=== PATIENT | male | born 1940 | race Caucasian/White ===

== ENCOUNTER 2018-01-28 15:45 | Inpatient (IN) | payer MEDICARE ==
[2018-01-28] MEDS ORDERED: Iopamidol 370 76% 100 ML VIAL ONE (16:34)
--- NOTE | 2018-01-28 16:59 | CT ---
CT ARTERIOGRAM CHEST WITH IV CONTRAST AND 3D MIP IMAGING CT ARTERIOGRAM ABDOMEN AND PELVIS WITH IV CONTRAST AND 3D MIP IMAGING 01/28/18 HISTORY: Chest and abdomen pain. Bradycardia. Syncope. FINDINGS: There is good contrast opacification of the aorta without evidence of dissection or aneurysm. Promine nt arterial calcification including the coronary arteries. Postoperative changes of mediastinum. No f illing defects are apparent within the central pulmonary arteries, although opacification is not opti mal given the technique was for the aorta. Old right clavicular fracture is apparent. A 0.7 cm noncalcified nodule is present at the left instructor kindergarten olateral lung, favored to be within the superior segment left lower lobe. Smaller subpleural nodules are present within each lung. Precarinal lymph node measures up to 1.8 cm. Hyperdense stone is evident within the dependent portion of the gallbladder lumen. Prominent degenerative changes lumbar spine. IMPRESSION: Prominent atherosclerosis. No CT evidence of aortic dissection or aneurysm. Noncalcified 7 mm nodule left lower lobe. Please consider followup CT in 6 months to evaluate for sta bility. Pulmonary fibrosis. Cholelithiasis. POS: [facility]
[2018-01-28 18:06] LABS: Troponin I Less than 0.010 ng/mL (< 0.028)
[2018-01-28 18:33] VITALS: BMI 26.3
[2018-01-28 19:35] LABS: Troponin I Less than 0.010 ng/mL (< 0.028)
[2018-01-28] MEDS ORDERED: Acetaminophen 325 MG TAB PO PRN (21:16)
[2018-01-28] MEDS ORDERED: Bisacodyl 5 MG TAB PO PRN (21:16)
[2018-01-28] MEDS ORDERED: Sodium Chloride 0.9% 1,000 ML IV SCH (21:30)
--- NOTE | 2018-01-28 22:18 | CON ---
DATE OF CONSULT: 01/28/18 HISTORY OF PRESENT: Patient is a pleasant 77-year-old gentleman with a history of coronary artery disease status post coronary bypass surgery who presented with severe back discomfort and weakness. The patient has a long history of coronary artery disease. In 2001, he underwent coronary bypass graft surgery. The patient also has a history of bradycardia. He reports previously having episodes where he had felt weak. The patient has never lost consciousness. Today, the patient presented with back discomfort. He also reported feeling weak. He reports that at times when he stands up he feels lightheaded. The patient was noted to have a slow heart rate and admitted for further evaluation. Patient denies having any chest discomfort or dyspnea. PAST MEDICAL HISTOR 1. Coronary artery disease. 2. Hypertension. 3. Hypercholesterolemia. 4. Dyslipidemia. PAST SURGICAL HISTORY: Collarbone surgery, hand surgery, and coronary bypass graft surgery. SOCIAL: Smokes half pack per day. ALLERGIES: No known drug allergies: MEDICATIONS: Terazosin 20 daily, Synthroid 75 daily, lisinopril 20 daily, niacin 1000 daily, Zocor 40 daily, aspirin 162 and citalopram 20 mg daily. ALLERGIES: No known drugs. REVIEW OF SYSTEMS: Ten-point system otherwise unremarkable. No history of easy bruising or bleeding, bright red blood per rectum, hematuria. Ten-point system unremarkable. PHYSICAL EXAMINATION: GENERAL: This is a well-developed gentleman in no acute distress. VITAL SIGNS: Blood pressure is 145/65, heart rate was 45. NECK: No jugular venous distention. LUNGS: Clear to auscultation. HEART: Regular rate and rhythm, normal S1, S2, no murmurs. ABDOMEN: Nondistended. EXTREMITIES: No edema. LABORATORY RESULTS: His sodium was 133, potassium 3.6, chloride 44.7, chloride 102, bicarbonate was 22, BUN 14, creatinine 1.05. BNP 141, LDL 62, HDL is 63, AST 19. His white blood cell count was 10.4, hemoglobin 11.2. Hematocrit 33.7 , platelets are 239. His INR was 1.1. His CT scan revealed no evidence of a dissection. His EKG revealed marked sinus bradycardia with first degree AV block. IMPRESSION: 1. Marked bradycardia. 2. History of coronary bypass surgery. 3. Hypertension. 4. Dyslipidemia. 5. Tobacco abuse. 6. Back discomfort. This gentleman presented with weakness and back discomfort. The patient has marked bradycardia. From a cardiac standpoint, his heart rate is extremely low and appears to be symptomatic. We will probably recommend the patient have placement of electronic pacemaker during this hospitalization. We will follow this patient with you through his hospitalization. DARSHANA
[2018-01-28 23:39] LABS: Troponin I Less than 0.010 ng/mL (< 0.028)
[2018-01-29 05:04] LABS: Anion Gap 10 mmol/L (10-20); BUN (Urea Nitrogen) 15 mg/dL (8.4-25.7); Calc. Creatinine Clearance 85 mL/min (70-130); Calcium 9.2 mg/dL (7.8-10.44); Carbon Dioxide 26 mmol/L (23-31); Cardiac Risk 2.1 (Less than 4.5); Chloride 103 mmol/L (98-107); Cholesterol 116 mg/dl (< 200 Desired); Estimated GFR-MDRD Greater than 90; Glucose 96 mg/dL (83-110); HDL Cholesterol 56 mg/dL (>60 Neg Risk); LDL Cholesterol, Calculated 52 mg/dL; Potassium 4.5 mmol/L (3.5-5.1); Sodium 134 mmol/L (136-145); Triglycerides 41 mg/dL (Less than 150)
[2018-01-29] MEDS: Levothyroxine Sodium 75 MCG TAB PO SCH (05:10)
[2018-01-29 05:26] LABS: Band 2 % (5-11); Eosinophils 2 % (0-10); Hemoglobin 10.8 g/dL (14.0-18.0); Lymphocytes 30 % (21-51); MDiff Complete? YES; Mean Corpuscular HGB CONC 33.2 g/dL (32.0-36.0); Mean Corpuscular Hemoglobin 29.3 pg (27.0-31.0); Mean Corpuscular Volume 88.1 fl (80.0-94.0); Mean Platelet Volume 7.8 fL (7.4-10.4); Monocytes 8 % (0-10); Neutrophil 57 % (42-75); Platelet Count 258 thou/uL (130-400); RBC Distribution Width 11.3 % (11.5-14.5); White Blood Cell (WBC) Count 9.7 thou/uL (4.8-10.8)
--- NOTE | 2018-01-29 05:36 | HP ---
CHIEF COMPLAINT: Lower back pain/generalized weakness. HISTORY OF PRESENT ILLNESS: Patient is a very pleasant 77-year-old male with a history of hypertensi on, smoking, coronary artery disease status post bypass, who presents to the hospital for lower back pain and fatigue. The patient stated that he was working today normally. He does complain of some l ower back pain; however, today his pain was pretty significant and he did not feel well. The patient stated that he did also have some dizziness; however, denies any chest discomfort or any nausea or v omiting. The patient stated he just felt very tired and fatigue. At this time, he was brought into the hospital and was found to have a heart rate in the 40s. The patient was admitted to the hospital for further evaluation. Patient currently denies any chest pain, dizziness, lightheadedness, nausea , vomiting, or diarrhea. PAST MEDICAL HISTORY: Hypertension, coronary artery disease, hypothyroidism. SOCIAL HISTORY: He smokes 20 packs a year. Drinks about 2 beers a week. PAST SURGICAL HIOSTORY: He had a bypass about 15-16 years ago. FAMILY HISTORY: Mother of heart disease. REVIEW OF SYSTEMS: All negative except for the ones mentioned above in the HPI. MEDICATIONS: As following; patient takes lisinopril 40 mg daily, niacin 500 mg daily, terazosin 2 mg daily, aspirin 81 mg daily, citalopram daily, levothyroxine 75 mcg daily and simvastatin 80 mg daily . ALLERGIES: He has got no known allergies. PHYSICAL EXAMINATION: VITAL SIGNS: Temperature of 98.2, heart rate of 45, 16, 96% on room air, 145/65. GENERAL: He is awake, alert, oriented x3, does not appear in distress. HEENT: Normocephalic, atraumatic. NECK: No lymphadenopathy noted. CARDIOVASCULAR: S1, S2 present. The patient's heart rate appears to be bradycardic. No murmurs or rubs heard. LUNGS: Clear to auscultation. No rhonchi or wheeze noted. ABDOMEN: Soft, nontender. Bowel sounds are positive x2. No hepatomegaly, splenomegaly noted. EXTREMITIES: No edema. Pedal pulse present x2. SKIN: The patient does have a little bit of campos on his upper chest area; however, no cuts or bruises noted. NEUROLOGIC: He is able to move all 4 extremities. LABORATORY AND X-RAY FINDINGS: Labs are as the following: WBC of 10.4, hemoglobin of 11.2, hematocr it of 33.7, platelets of 239,000. Chemistry: Sodium of 133, potassium of 4.7, anion gap 14, BUN of 14, creatinine of 1.05. Troponins x3 are negative. ProBNP is 142. TSH is 0.29. We will check a fr ee T4. EKG appears sinus darya. The patient also had a CT for dissection, did not indicate any diss ection; however, he does have a calcified 7 mm nodule to the left lower lung area. ASSESSMENT AND PLAN: The patient is a very pleasant 77-year-old male who presents to the hospital wi th lower back pain and fatigue. 1. Symptomatic bradycardia. The patient was given some IV fluids because his blood pressure in the ER was pretty low; however, currently he is stable. Currently, patient is asymptomatic. We will con sult Cardiology. Continue to monitor on tele. Patient is not on any beta blockers. We will check a free T4 since his TSH was low. 2. Smoking history. Patient has been notified again smoking. He refuses a nicotine patch. 3. Left lower lung 7 mm nodule. Given the patient's history of smoking, he needs a followup CT in a bout 6 months. 4. Hypertension, currently stable. We will continue his home medication. 5. Deep venous thrombosis prophylaxis. We will put patient on subcutaneous heparin.
[2018-01-29] MEDS: Enoxaparin Sodium 40 MG/0.4 ML SYRINGE SC SCH (09:01)
[2018-01-29] MEDS: Lisinopril 20 MG TAB PO SCH (09:01)
[2018-01-29] MEDS: Aspirin 81 mg Enteric Coated Tablet PO SCH (09:02)
[2018-01-29] MEDS: Citalopram 20 MG TAB PO SCH (09:02)
--- NOTE | 2018-01-29 12:48 | PDOC.PN ---
- Subjective Encounter Start Date: 01/29/18 Encounter Start Time: 07:40 Pt seen for followup re: arrhythmia. Denies chest pain, shortness of breath, fevers or chills. - Objective Resuscitation Status: Resuscitation Status FULL:Full Resuscitation MAR Reviewed: Yes Vital Signs & Weight: Vital Signs (12 hours) Temp Pulse Resp BP BP BP Pulse Ox 01/29/18 12:00 98.5 F 57 L 16 117/61 94 L 01/29/18 09:01 128/63 01/29/18 07:53 98.5 F 53 L 16 128/63 95 01/29/18 04:00 98.1 F 56 L 18 123/59 L 95 Weight Weight 169 lb 8 oz I&O: 01/28/18 01/29/18 01/30/18 06:59 06:59 06:59 Intake Total 240 Output Total 350 Balance -350 240 Result Diagrams: 01/29/18 03:55 01/29/18 03:55 EKG Reviewed by me: Yes (Tele: DIXIE Gallardo) Phys Exam - Physical Examination Constitutional: NAD HEENT: moist MMs, sclera anicteric, oral pharynx no lesions, 2+ tonsils Neck: no nodes, no JVD, supple, full ROM Respiratory: no wheezing, no rales, no rhonchi, clear to auscultation bilateral Cardiovascular: no rub S1, S2, darya, reg Gastrointestinal: soft, non-tender, no distention, positive bowel sounds Neurological: moves all 4 limbs Psychiatric: normal affect, A&O x 3 Dx/Plan (1) Arrhythmia Code(s): I49.9 - CARDIAC ARRHYTHMIA, UNSPECIFIED Status: Acute Comment: Pt to have PPM today (2) Pulmonary nodule Code(s): R91.1 - SOLITARY PULMONARY NODULE Status: Acute Comment: pt needs repeat CT chest in 6 months (through PCP office) (3) HTN (hypertension) Code(s): I10 - ESSENTIAL (PRIMARY) HYPERTENSION Status: Chronic Comment: Controlled and at goal. (4) Hypothyroidism Code(s): E03.9 - HYPOTHYROIDISM, UNSPECIFIED Status: Chronic Comment: Stable. (5) CAD (coronary artery disease) Code(s): I25.10 - ATHSCL HEART DISEASE OF [place] CORONARY ARTERY W/O ANG PCTRS Status: Chronic Comment: stable (6) Tobacco abuse Code(s): Z72.0 - TOBACCO USE Status: Chronic - Plan * . Review of Systems - Review of Systems Constitutional: negative: fever, chills, sweats, weakness, malaise Respiratory: negative: Cough, Shortness of Breath, SOB with Excertion, Pleuritic Pain, Wheezing Cardiovascular: negative: chest pain, palpitations, orthopnea, paroxysmal nocturnal dyspnea, edema, light headedness Gastrointestinal: negative: Nausea, Vomiting, Abdominal Pain, Diarrhea, Constipation, Melena, Hematochezia Genitourinary: negative: Dysuria, Frequency, Incontinence, Hematuria, Retention Neurological: negative: Weakness, Numbness, Incoordination, Change in Speech, Confusion, Seizures - Medications/Allergies Allergies/Adverse Reactions: Allergies Allergy/AdvReac Type Severity Reaction Status Date / Time No Known Allergies Allergy Verified 01/28/18 20:12 Medications: Current Medications Acetaminophen (Tylenol) 650 mg PO Q4H PRN PRN Reason: Headache/Fever or Pain Aspirin (Ecotrin) 162 mg PO DAILY [facility] Last Admin: 01/29/18 09:02 Dose: 162 mg Atorvastatin Calcium (Lipitor) 20 mg PO HS [facility] Bisacodyl (Dulcolax) 10 mg PO DAILYPRN PRN PRN Reason: Constipation Citalopram Hydrobromide (Celexa) 20 mg PO DAILY [facility] Last Admin: 01/29/18 09:02 Dose: 20 mg Enoxaparin Sodium (Lovenox) 40 mg SC 0900 [facility] Last Admin: 01/29/18 09:01 Dose: 40 mg Levothyroxine Sodium (Synthroid) 75 mcg PO 0600 [facility] Last Admin: 01/29/18 05:10 Dose: 75 mcg Lisinopril (Zestril) 20 mg PO DAILY [facility] Last Admin: 01/29/18 09:01 Dose: 20 mg
[2018-01-29] MEDS: Terazosin HCl 5 MG CAP PO SCH (19:31)
[2018-01-29] MEDS: Atorvastatin Calcium 20 MG TAB PO SCH (19:31)
[2018-01-29] MEDS ORDERED: [UNRECOGNIZED DRUG - OTHER] PO SCH (21:00)
[2018-01-29] MEDS ORDERED: TERAZOSIN HCL PO SCH (21:00)
[2018-01-29] MEDS ORDERED: Atorvastatin Calcium 20 MG TAB PO SCH (21:00)
[2018-01-29] MEDS ORDERED: NIACIN 1000 MG PO SCH (21:00)
[2018-01-30] MEDS: Levothyroxine Sodium 75 MCG TAB PO SCH (05:23)
[2018-01-30] MEDS ORDERED: Non-Formulary Item 1 EACH (Lisinopril [Lisinopril] 20 MG) PO SCH (09:00)
[2018-01-30] MEDS: Aspirin 81 mg Enteric Coated Tablet PO SCH (09:07)
[2018-01-30] MEDS: Lisinopril 20 MG TAB PO SCH ×3 (09:07→09:11)
[2018-01-30] MEDS: Citalopram 20 MG TAB PO SCH (09:07)
[2018-01-30] MEDS: Enoxaparin Sodium 40 MG/0.4 ML SYRINGE SC SCH (09:08)
--- NOTE | 2018-01-30 12:35 | PDOC.PN ---
- Subjective Encounter Start Date: 01/30/18 Encounter Start Time: 08:20 Pt seen for followup re: arrhythmia. Denies chest pain, shortness of breath, fevers or chills. - Objective Resuscitation Status: Resuscitation Status FULL:Full Resuscitation MAR Reviewed: Yes Vital Signs & Weight: Vital Signs (12 hours) Temp Pulse Resp BP BP Pulse Ox 01/30/18 09:05 97.6 F 56 L 18 136/63 01/30/18 09:00 97.6 F 56 L 18 01/30/18 03:55 98.2 F 49 L 18 114/55 L 92 L Weight Weight 165 lb 3.2 oz I&O: 01/29/18 01/30/18 01/31/18 06:59 06:59 06:59 Intake Total 1450 Output Total 350 800 Balance -350 650 Result Diagrams: 01/29/18 03:55 01/29/18 03:55 EKG Reviewed by me: Yes (Tele: NSR, AV block) Phys Exam - Physical Examination Constitutional: NAD HEENT: moist MMs, sclera anicteric, oral pharynx no lesions, 2+ tonsils Neck: no nodes, no JVD, supple, full ROM Respiratory: no wheezing, no rales, no rhonchi, clear to auscultation bilateral Cardiovascular: no rub S1, S2, darya, reg Gastrointestinal: soft, non-tender, no distention, positive bowel sounds Neurological: moves all 4 limbs Psychiatric: normal affect, A&O x 3 Dx/Plan (1) Arrhythmia Code(s): I49.9 - CARDIAC ARRHYTHMIA, UNSPECIFIED Status: Acute Comment: Episodes of AV block, pt to go for PPM tomorrow. (2) Pulmonary nodule Code(s): R91.1 - SOLITARY PULMONARY NODULE Status: Acute Comment: pt to have CT chest in 6 months (through PCP office) (3) HTN (hypertension) Code(s): I10 - ESSENTIAL (PRIMARY) HYPERTENSION Status: Chronic Comment: Controlled and at goal. (4) Hypothyroidism Code(s): E03.9 - HYPOTHYROIDISM, UNSPECIFIED Status: Chronic Comment: Stable. (5) CAD (coronary artery disease) Code(s): I25.10 - ATHSCL HEART DISEASE OF [place] CORONARY ARTERY W/O ANG PCTRS Status: Chronic Comment: stable (6) Tobacco abuse Code(s): Z72.0 - TOBACCO USE Status: Chronic - Plan * . Review of Systems - Review of Systems Constitutional: negative: fever, chills, sweats, weakness, malaise Respiratory: negative: Cough, Shortness of Breath, SOB with Excertion, Pleuritic Pain, Wheezing Cardiovascular: negative: chest pain, palpitations, orthopnea, paroxysmal nocturnal dyspnea, edema, light headedness Gastrointestinal: negative: Nausea, Vomiting, Abdominal Pain, Diarrhea, Constipation, Melena, Hematochezia Genitourinary: negative: Dysuria, Frequency, Incontinence, Hematuria, Retention Skin: negative: Rash, Lesions, Abdoul, Bruising - Medications/Allergies Allergies/Adverse Reactions: Allergies Allergy/AdvReac Type Severity Reaction Status Date / Time No Known Allergies Allergy Verified 01/28/18 20:12 Medications: Current Medications Acetaminophen (Tylenol) 650 mg PO Q4H PRN PRN Reason: Headache/Fever or Pain Aspirin (Ecotrin) 162 mg PO DAILY [facility] Last Admin: 01/30/18 09:07 Dose: 162 mg Atorvastatin Calcium (Lipitor) 20 mg PO [facility] Last Admin: 01/29/18 19:31 Dose: 20 mg Bisacodyl (Dulcolax) 10 mg PO DAILYPRN PRN PRN Reason: Constipation Citalopram Hydrobromide (Celexa) 20 mg PO DAILY [facility] Last Admin: 01/30/18 09:07 Dose: 20 mg Enoxaparin Sodium (Lovenox) 40 mg SC 0900 [facility] Last Admin: 01/30/18 09:08 Dose: 40 mg Levothyroxine Sodium (Synthroid) 75 mcg PO 0600 [facility] Last Admin: 01/30/18 05:23 Dose: 75 mcg Lisinopril (Zestril) 20 mg PO DAILY [facility] Last Admin: 01/30/18 09:11 Dose: Not Given Niacin (Niaspan Er) 1,000 mg PO [facility] Last Admin: 01/29/18 19:30 Dose: 1,000 mg Terazosin HCl (Hytrin) 20 mg PO [facility] Last Admin: 01/29/18 19:31 Dose: 20 mg
[2018-01-30] MEDS: Terazosin HCl 5 MG CAP PO SCH (21:32)
[2018-01-30] MEDS: Atorvastatin Calcium 20 MG TAB PO SCH (21:34)
[2018-01-31] MEDS ORDERED: CEFAZOLIN/Water 2 GM/20 ML SYRINGE SLOW IVP SCH (04:00)
[2018-01-31] MEDS: Levothyroxine Sodium 75 MCG TAB PO SCH (05:35)
[2018-01-31] MEDS ORDERED: Gentamicin 80 MG/2 ML VIAL ONE (08:31)
[2018-01-31] MEDS ORDERED: CEFAZOLIN/Water 2 GM/20 ML SYRINGE ONE (08:31)
[2018-01-31] MEDS ORDERED: Lidocaine 1% (PF) 30 ML VIAL ONE (08:31)
[2018-01-31] MEDS ORDERED: CEFAZOLIN 1 GM VIAL ONE (08:31)
[2018-01-31] MEDS ORDERED: Midazolam HCl 2 mg/2 ml Vial ONE (08:50)
[2018-01-31] MEDS: Enoxaparin Sodium 40 MG/0.4 ML SYRINGE SC SCH (09:33)
--- NOTE | 2018-01-31 11:19 | RAD ---
UPRIGHT PORTABLE CHEST 1 VIEW: HISTORY: A 77-year-old male with a history of post cardiac device placement. COMPARISON: 01/28/18. FINDINGS: Left ICD. Postop midline sternotomy. Monitor leads overlie the chest. No confluent pneumonia, over t edema, or pleural effusion. No pneumothorax. IMPRESSION: Left implantable cardioverter defibrillator placement without pneumothorax or other acute process. O therwise, stable from prior study. POS: [facility]
[2018-01-31 11:31] VITALS: BP 143/70; TEMP 97.6
[2018-01-31] MEDS: Citalopram 20 MG TAB PO SCH (11:31)
[2018-01-31] MEDS: Aspirin 81 mg Enteric Coated Tablet PO SCH (11:31)
[2018-01-31] MEDS: Lisinopril 20 MG TAB PO SCH (11:31)
--- NOTE | 2018-01-31 12:34 | PDOC.PN ---
- Subjective Encounter Start Date: 01/31/18 Encounter Start Time: 09:40 Pt seen for followup re: arrhythmia. [place] light-headed earlier. No other complaints. - Objective Resuscitation Status: Resuscitation Status FULL:Full Resuscitation MAR Reviewed: Yes Vital Signs & Weight: Vital Signs (12 hours) Temp Pulse Resp BP BP Pulse Ox 01/31/18 11:26 97.6 F 61 17 143/70 H 97 01/31/18 09:31 79 122/59 L 01/31/18 07:36 97.7 F 50 L 16 134/61 95 01/31/18 04:00 98.4 F 52 L 16 118/55 L 96 Weight Weight 165 lb 3.2 oz I&O: 01/30/18 01/31/18 02/01/18 06:59 06:59 06:59 Intake Total 1450 720 Output Total 800 750 Balance 650 -30 Result Diagrams: 01/29/18 03:55 01/29/18 03:55 EKG Reviewed by me: Yes (Tele: sinus bradycardia) Phys Exam - Physical Examination Constitutional: NAD HEENT: moist MMs Neck: supple Respiratory: clear to auscultation bilateral S1, s2, darya, reg Gastrointestinal: soft Neurological: moves all 4 limbs Psychiatric: normal affect Dx/Plan (1) Arrhythmia Code(s): I49.9 - CARDIAC ARRHYTHMIA, UNSPECIFIED Status: Acute Comment: Pt to have PPM today (2) Pulmonary nodule Code(s): R91.1 - SOLITARY PULMONARY NODULE Status: Acute Comment: pt needs repeat CT chest in 6 months (through PCP office) (3) HTN (hypertension) Code(s): I10 - ESSENTIAL (PRIMARY) HYPERTENSION Status: Chronic Comment: Controlled and at goal. (4) Hypothyroidism Code(s): E03.9 - HYPOTHYROIDISM, UNSPECIFIED Status: Chronic Comment: Stable. (5) CAD (coronary artery disease) Code(s): I25.10 - ATHSCL HEART DISEASE OF [place] CORONARY ARTERY W/O ANG PCTRS Status: Chronic Comment: stable (6) Tobacco abuse Code(s): Z72.0 - TOBACCO USE Status: Chronic - Plan * . Likely home in 24 hours Review of Systems - Review of Systems Respiratory: negative: Cough, Shortness of Breath, SOB with Excertion, Pleuritic Pain, Wheezing Cardiovascular: light headedness. negative: chest pain, palpitations, orthopnea , paroxysmal nocturnal dyspnea, edema - Medications/Allergies Allergies/Adverse Reactions: Allergies Allergy/AdvReac Type Severity Reaction Status Date / Time No Known Allergies Allergy Verified 01/28/18 20:12 Medications: Current Medications Acetaminophen (Tylenol) 650 mg PO Q4H PRN PRN Reason: Headache/Fever or Pain Aspirin (Ecotrin) 162 mg PO DAILY [facility] Last Admin: 01/31/18 11:31 Dose: 162 mg Atorvastatin Calcium (Lipitor) 20 mg PO HS [facility] Last Admin: 01/30/18 21:34 Dose: 20 mg Bisacodyl (Dulcolax) 10 mg PO DAILYPRN PRN PRN Reason: Constipation Cefazolin Sodium (Ancef) 2 gm SLOW IVP ONCALL-OR CRUZ Stop: 02/01/18 04:01 Citalopram Hydrobromide (Celexa) 20 mg PO DAILY [facility] Last Admin: 01/31/18 11:31 Dose: 20 mg Enoxaparin Sodium (Lovenox) 40 mg SC 0900 [facility] Last Admin: 01/31/18 09:33 Dose: Not Given Levothyroxine Sodium (Synthroid) 75 mcg PO 0600 [facility] Last Admin: 01/31/18 05:35 Dose: Not Given Lisinopril (Zestril) 20 mg PO DAILY [facility] Last Admin: 01/31/18 11:31 Dose: 20 mg Niacin (Niaspan Er) 1,000 mg PO [facility] Last Admin: 01/30/18 21:34 Dose: 1,000 mg Sodium Chloride (Flush - Normal Saline) 10 ml IVF PRN PRN PRN Reason: Saline Flush Terazosin HCl (Hytrin) 20 mg PO [facility] Last Admin: 01/30/18 21:32 Dose: 20 mg
--- NOTE | 2018-01-31 16:46 | EKG ---
Test Reason : POST PACEMAKER INSER Blood Pressure : / mmHG Vent. Rate : 063 BPM Atrial Rate : 288 BPM P-R Int : 000 ms QRS Dur : 154 ms QT Int : 472 ms P-R-T Axes : 000 -82 084 degrees QTc Int : 483 ms AV sequential or dual chamber electronic pacemaker When compared with ECG of 28-JAN-2018 15:57, (Unconfirmed) Electronic ventricular pacemaker has replaced Sinus rhythm Vent. rate has increased BY 21 BPM Confirmed by ANISHA VILLA ([id number]) on 01/31/2018 4:45:53 PM Referred By: LEXY Confirmed By:ANISHA VILLA
--- NOTE | 2018-02-01 01:14 | DIS ---
DATE OF ADMISSION: 01/28/2018 DATE OF DISCHARGE: 01/31/2018 PRIMARY CARE PROVIDER: Mikel Hare M.D. DISCHARGE DIAGNOSES: 1. Symptomatic arrhythmia. 2. Left lower lobe pulmonary nodule. CONSULTATIONS DURING THIS HOSPITALIZATION: Cardiology, Dr. Green. CONDITION OF PATIENT ON THE DAY OF DISCHARGE: Stable. I assessed Mr. Barrett on the day of discha rge. Please refer to my daily progress note for further information regarding this [id number] enco unter. DISCHARGE MEDICATIONS: Cephalexin 500 mg 4 times a day for 1 week, aspirin 162 mg daily, citalopram 20 mg daily, levothyroxine 75 mcg daily, lisinopril 20 mg daily, niacin 1000 mg at bedtime, simvastat in 40 mg at bedtime, terazosin 2 mg at bedtime. HOSPITAL COURSE: Mr. Barrett is a pleasant 77-year-old gentleman who was admitted to [facility] on 01/28/[address] dissection protocol did not show any evidence o f aortic dissection, but it showed noncalcified 7 mm nodule in the left lower lobe. Radiologist michaela mmends follow up CT scan in 6 months to evaluate for stability. He was also found to be bradycardic and also had second degree type 1 and type 2 AV blocks on telemet ry monitor. He was seen by Cardiology Service. On 01/31/2018, he underwent permanent pacemaker plac [facility] and is being discharged home in a stable condition. He is advised to follow up with Cardiology Service as well as primary care provider. He will need to follow up CT scan in 6 months' time to his primary care provider's office to ensure s tability of lung nodule. Many thanks for allowing me to participate in your patient's care. Please feel free to contact me wi th any questions or concerns. DISCHARGE DESTINATION: Home. TOTAL AMOUNT OF TIME SPENT COORDINATING THIS DISCHARGE: 32 minutes.
--- NOTE | 2018-02-01 16:04 | CCL ---
INDICATION FOR PROCEDURE: This is a 77-year-old patient with sick sinus syndrome with more than 5 second pauses. He was advise d to undergo dual-chamber pacemaker insertion. He was taken to cardiac laboratory courier where the procedure was performed without difficulties or complicati ons. He was implanted with a dual chamber pacemaker from [employer]. This is an Adapta with two scre w in leads, one in the ventricle and one the atrium. There were no complications or difficulties enc ountered. The pacemaker set with the upper rate of 120 the lower rate was set at 60.
== END 2018-01-31 16:10 | disposition home or self-care (01) | DRG 244 ==
LOC: ERS 15:45 → 2NO 17:15
PROVIDERS: ADMIT Internal Medicine; ATTEND Internal Medicine
PROC: 0JH606Z Insertion of Pacemaker, Dual Chamber into Chest Subcutaneous Tissue and Fascia, Open Approach (ICD-10-PCS; principal; 2018-01-31)
PROC: 02H63JZ Insertion of Pacemaker Lead into Right Atrium, Percutaneous Approach (ICD-10-PCS; 2018-01-31)
PROC: 02HK3JZ Insertion of Pacemaker Lead into Right Ventricle, Percutaneous Approach (ICD-10-PCS; 2018-01-31)
DX: R00.1 Bradycardia, unspecified (principal); I10 Essential (primary) hypertension; I44.1 Atrioventricular block, second degree; R91.1 Solitary pulmonary nodule; I25.10 Atherosclerotic heart disease of native coronary artery without angina pectoris; E03.9 Hypothyroidism, unspecified; E78.5 Hyperlipidemia, unspecified; Z79.899 Other long term (current) drug therapy; Z95.1 Presence of aortocoronary bypass graft; Z79.82 Long term (current) use of aspirin; F17.210 Nicotine dependence, cigarettes, uncomplicated
CPT/HCPCS: 33208; 36415; 71045; 71275; 80048; 80061; 84439; 84443; 85025; 93005; 93010; 99152; C1785; C1898; G8978-GP-CJ; G8979-GP-CJ; G8980-GP-CJ; J0690; J1580; J1650; J2001; J2250

== ENCOUNTER 2022-07-20 06:41 | Emergency (ER) | payer OTHER, MEDICARE ==
[2022-07-20 07:49] LABS: #Basophils 0.1 thou/uL (0.0-0.2); #Lymphocytes 1.8 thou/uL (1.20-3.40); #Monocytes 1.2 thou/uL (0.11-0.59); %Basophils 0.6 % (0.0-1.0); %Eosinophils 0.2 % (0.0-10.0); %Lymphocytes 17.8 % (21.0-51.0); %Monocytes 11.7 % (0.0-10.0); %Neutrophils 69.7 % (42.0-75.0); Hemoglobin 10.7 g/dL (14.0-18.0); Mean Corpuscular HGB CONC 33.3 g/dL (32.0-36.0); Mean Corpuscular Hemoglobin 31.6 pg (27.0-31.0); Mean Corpuscular Volume 94.8 fl (78.0-98.0); Mean Platelet Volume 8.2 fL (7.4-10.4); Platelet Count 299 10x3/uL (130-400); RBC Distribution Width 12.4 % (11.5-14.5)
[2022-07-20] MEDS ORDERED: Furosemide 40 MG/4 ML VIAL ONE (08:04)
[2022-07-20 08:19] LABS: ALT (SGPT) 28 U/L (8-55); AST (SGOT) 28 U/L (5-34); Albumin 3.6 g/dL (3.4-4.8); Alkaline Phosphatase 109 U/L (40-110); Anion Gap 9 mmol/L (10-20); BUN (Urea Nitrogen) 21 mg/dL (8.4-25.7); Bilirubin, Total 0.3 mg/dL (0.2-1.2); Calc. Creatinine Clearance 0 mL/min (70-130); Carbon Dioxide 26 mmol/L (23-31); Chloride 102 mmol/L (98-107); Estimated GFR 87; Globulin 3.1 g/dL (2.4-3.5); Glucose 139 mg/dL (83-110); Potassium 3.1 mmol/L (3.5-5.1); Protein, Total 6.7 g/dL (5.8-8.1); Sodium 134 mmol/L (136-145)
== END 2022-07-20 09:55 | disposition home or self-care (01) ==
LOC: ERS 06:41
DX: R60.9 Edema, unspecified (principal); E03.9 Hypothyroidism, unspecified; E78.5 Hyperlipidemia, unspecified; I10 Essential (primary) hypertension; F17.210 Nicotine dependence, cigarettes, uncomplicated
CPT/HCPCS: 36415; 71045; 80053; 83880; 84484; 85025; 93005; 96374; J1940; J7620

== ENCOUNTER 2022-08-11 10:13 | Inpatient (IN) | payer MEDICARE, OTHER ==
[2022-08-11 10:32] LABS: #Basophils 0.1 thou/uL (0.0-0.2); #Lymphocytes 2.1 thou/uL (1.20-3.40); #Neutrophils 3.9 thou/uL (1.40-6.50); %Eosinophils 0.2 % (0.0-10.0); %Lymphocytes 29.8 % (21.0-51.0); %Monocytes 13.7 % (0.0-10.0); %Neutrophils 55.3 % (42.0-75.0); Hemoglobin 12.1 g/dL (14.0-18.0); Mean Corpuscular Hemoglobin 31.5 pg (27.0-31.0); Mean Corpuscular Volume 95.2 fl (78.0-98.0); Mean Platelet Volume 8.4 fL (7.4-10.4); Platelet Count 201 10x3/uL (130-400); RBC Distribution Width 12.9 % (11.5-14.5); Red Blood Cell (RBC) Count 3.85 mill/uL (4.70-6.10); White Blood Cell (WBC) Count 7.1 10x3/uL (4.8-10.8)
[2022-08-11] MEDS ORDERED: Fentanyl 100 MCG/2 ML VIAL ONE (10:35)
[2022-08-11] MEDS ORDERED: Ondansetron PF 4 MG/2 ML Vial ONE (10:39)
[2022-08-11 10:56] LABS: Bacteria/HPF None Seen HPF (None Seen); Bilirubin Negative (Negative); Blood, Urine 1+ (Negative); Clarity Clear (Clear); Glucose, Urine (Dipstick) Normal (Negative); Ketone, Urine Negative (Negative); Leukocyte Negative Leu/uL (Negative); Nitrite Negative (Negative); Protein, Urine (Dipstick) Negative (Neg-Trace); Specific Gravity, Urine 1.014 (1.002-1.036); Squamous Epithelial None Seen HPF (0-3); Urobilinogen Normal mg/dL (Less than 2); WBC/HPF 0-3 HPF (0-3)
[2022-08-11 10:58] LABS: ALT (SGPT) 26 U/L (8-55); AST (SGOT) 34 U/L (5-34); Albumin 4.1 g/dL (3.4-4.8); Alkaline Phosphatase 82 U/L (40-110); Anion Gap 11 mmol/L (10-20); BUN (Urea Nitrogen) 16 mg/dL (8.4-25.7); Bilirubin, Total 0.6 mg/dL (0.2-1.2); Calc. Creatinine Clearance 0 mL/min (70-130); Calcium 9.2 mg/dL (7.8-10.44); Carbon Dioxide 26 mmol/L (23-31); Chloride 100 mmol/L (98-107); Estimated GFR 89; Glucose 109 mg/dL (83-110); Lipase 26 U/L (8-78); Potassium 4.1 mmol/L (3.5-5.1); Protein, Total 7.1 g/dL (5.8-8.1); Sodium 133 mmol/L (136-145)
[2022-08-11] MEDS ORDERED: Morphine 4 MG/ML VIAL ONE (12:09)
[2022-08-11] MEDS ORDERED: Pantoprazole 40 MG VIAL ONE (12:09)
[2022-08-11] MEDS ORDERED: Acetaminophen 325 MG TAB PO PRN (13:38)
[2022-08-11] MEDS ORDERED: Morphine 4 MG/ML VIAL SLOW IVP PRN (13:48)
[2022-08-11 15:51] VITALS: BMI 27.4
[2022-08-11] MEDS ORDERED: Iopamidol-370 76% 500 ML 1 ML ONE (16:01)
[2022-08-11] MEDS: Nicotine 21 MG PATCH TD SCH (16:05)
[2022-08-12 06:39] LABS: #Basophils 0.1 thou/uL (0.0-0.2); #Lymphocytes 2.3 thou/uL (1.20-3.40); #Monocytes 1.1 thou/uL (0.11-0.59); #Neutrophils 5.4 thou/uL (1.40-6.50); %Basophils 0.8 % (0.0-1.0); %Eosinophils 0.4 % (0.0-10.0); %Lymphocytes 25.4 % (21.0-51.0); %Monocytes 12.8 % (0.0-10.0); %Neutrophils 60.5 % (42.0-75.0); Mean Corpuscular HGB CONC 32.9 g/dL (32.0-36.0); Mean Corpuscular Hemoglobin 31.6 pg (27.0-31.0); Mean Platelet Volume 7.9 fL (7.4-10.4); Platelet Count 228 10x3/uL (130-400); RBC Distribution Width 12.8 % (11.5-14.5); White Blood Cell (WBC) Count 8.9 10x3/uL (4.8-10.8)
[2022-08-12 07:08] LABS: Anion Gap 13 mmol/L (10-20); BUN (Urea Nitrogen) 11 mg/dL (8.4-25.7); Calc. Creatinine Clearance 71 mL/min (70-130); Calcium 9.5 mg/dL (7.8-10.44); Carbon Dioxide 24 mmol/L (23-31); Chloride 101 mmol/L (98-107); Estimated GFR 86; Glucose 97 mg/dL (83-110); Potassium 4.1 mmol/L (3.5-5.1); Sodium 134 mmol/L (136-145)
[2022-08-12] MEDS: Pantoprazole 40 MG VIAL IVP SCH (08:55)
[2022-08-12 10:29] LABS: Prothrombin Time 13.5 sec (12.0-14.7)
[2022-08-12] MEDS ORDERED: Ketorolac Tromethamine 30 MG/ML VIAL IVP PRN (11:14)
[2022-08-12] MEDS ORDERED: Sodium Chloride 0.9% 1,000 ML IV SCH (11:15)
[2022-08-12] MEDS ORDERED: Ketorolac Tromethamine 30 MG/ML VIAL IVP SCH (11:30)
[2022-08-12] MEDS: Nicotine 21 MG PATCH TD SCH (14:01)
[2022-08-12] MEDS ORDERED: Iopamidol 30 ML ONE (17:02)
[2022-08-12] MEDS ORDERED: Bupivacaine/Epinephrine 0.25% 30 ML VIAL ONE (17:02)
[2022-08-12] MEDS ORDERED: Bupivacaine HCl 0.5%/Epinephrine 1:200,000/PF 30 ml Vial ONE (17:02)
[2022-08-12] MEDS ORDERED: Fentanyl 250 MCG/5 ML VIAL ONE (17:55)
[2022-08-12] MEDS ORDERED: CEFAZOLIN 2 GM VIAL ONE (18:03)
[2022-08-12] MEDS ORDERED: Sodium Chloride 0.9% 100 ML ONE (18:03)
[2022-08-12] MEDS ORDERED: PROPOFOL 200 MG/20 ML VIAL ONE (18:15)
[2022-08-12] MEDS ORDERED: Ondansetron PF 4 MG/2 ML Vial ONE (18:15)
[2022-08-12] MEDS ORDERED: Glycopyrrolate 0.2 MG/ML 5 ML SYRINGE ONE (18:15)
[2022-08-12] MEDS ORDERED: Dexamethasone 20 MG/5 ML VIAL ONE (18:15)
[2022-08-12] MEDS ORDERED: NEOSTIGMINE 3 MG/3 ML SYR 3 MG/3 ML SYRINGE ONE (18:15)
[2022-08-12] MEDS ORDERED: Rocuronium Bromide 10 MG/ML (10ML VIAL) ONE (18:15)
[2022-08-12] MEDS ORDERED: Succinylcholine Chloride 100 MG/5 ML SYRINGE FS ONE (18:15)
[2022-08-12] MEDS ORDERED: Midazolam HCl 2 mg/2 ml Vial ONE (18:49)
[2022-08-12] MEDS ORDERED: Acetaminophen 500 MG TAB PO PRN (18:55)
[2022-08-12] MEDS ORDERED: traMADol HCl 50 MG TAB PO PRN (18:55)
[2022-08-12] MEDS ORDERED: Acetaminophen 500 MG TAB PO SCH (19:00)
[2022-08-12] MEDS ORDERED: Promethazine HCl 25 MG/ML VIAL IM PRN (19:03)
[2022-08-12] MEDS ORDERED: Ondansetron HCl/PF 4 MG/2 ML Vial IVP PRN (19:03)
[2022-08-12] MEDS ORDERED: Promethazine HCl 25 MG/ML VIAL IVPB PRN (19:03)
[2022-08-12] MEDS ORDERED: Dexmedetomidine 200 MCG/2 ML VIAL ONE (19:04)
[2022-08-12] MEDS ORDERED: Indomethacin 50 MG SUPP PR SCH (19:45)
[2022-08-12] MEDS ORDERED: Levofloxacin 500 mg/D5W 100 ml Premix Bag ONE (19:56)
[2022-08-12] MEDS: Terazosin HCl 5 MG CAP PO SCH (22:45)
[2022-08-13] MEDS: Enoxaparin Sodium 40 MG/0.4 ML SYRINGE SC SCH ×2 (01:06→20:07)
[2022-08-13] MEDS: Sodium Chloride 0.9% 1,000 ML IV SCH ×2 (07:00→17:20)
[2022-08-13 07:43] LABS: #Lymphocytes 1.2 thou/uL (1.20-3.40); #Monocytes 1.4 thou/uL (0.11-0.59); #Neutrophils 13.5 thou/uL (1.40-6.50); %Basophils 0.1 % (0.0-1.0); %Eosinophils 0.1 % (0.0-10.0); %Lymphocytes 7.2 % (21.0-51.0); %Monocytes 8.9 % (0.0-10.0); %Neutrophils 83.8 % (42.0-75.0); Mean Corpuscular Hemoglobin 31.6 pg (27.0-31.0); Mean Corpuscular Volume 95.8 fl (78.0-98.0); Platelet Count 198 10x3/uL (130-400); RBC Distribution Width 12.6 % (11.5-14.5); Red Blood Cell (RBC) Count 3.47 mill/uL (4.70-6.10); White Blood Cell (WBC) Count 16.1 10x3/uL (4.8-10.8)
[2022-08-13 08:07] LABS: ALT (SGPT) 35 U/L (8-55); AST (SGOT) 59 U/L (5-34); Albumin 3.6 g/dL (3.4-4.8); Alkaline Phosphatase 79 U/L (40-110); Anion Gap 13 mmol/L (10-20); BUN (Urea Nitrogen) 13 mg/dL (8.4-25.7); Bilirubin, Total 0.7 mg/dL (0.2-1.2); Calc. Creatinine Clearance 77 mL/min (70-130); Carbon Dioxide 19 mmol/L (23-31); Chloride 104 mmol/L (98-107); Estimated GFR 88; Globulin 2.8 g/dL (2.4-3.5); Glucose 120 mg/dL (83-110); Potassium 4.2 mmol/L (3.5-5.1); Protein, Total 6.4 g/dL (5.8-8.1); Sodium 132 mmol/L (136-145)
[2022-08-13 08:22] LABS: Free T4 (Free Thyroxine) 0.49 ng/dL (0.70-1.48)
[2022-08-13] MEDS: Levothyroxine Sodium 75 MCG TAB PO SCH (09:56)
[2022-08-13] MEDS: Lisinopril 20 MG TAB PO SCH (09:56)
[2022-08-13] MEDS: Aspirin 81 mg Enteric Coated Tablet PO SCH (09:57)
[2022-08-13] MEDS: Pantoprazole 40 MG VIAL IVP SCH (09:58)
[2022-08-13] MEDS ORDERED: Iopamidol 30 ML ONE ×2 (10:58→12:24)
[2022-08-13] MEDS ORDERED: Indomethacin 50 MG SUPP ONE (10:59)
[2022-08-13] MEDS ORDERED: Fentanyl 100 MCG/2 ML VIAL ONE (11:02)
[2022-08-13] MEDS ORDERED: Rocuronium Bromide 10 MG/ML (10ML VIAL) ONE (11:13)
[2022-08-13] MEDS ORDERED: PROPOFOL 200 MG/20 ML VIAL ONE (11:13)
[2022-08-13] MEDS ORDERED: Lidocaine 1% PF 5 ML VIAL ONE (11:13)
[2022-08-13] MEDS ORDERED: ePHEDrine 50 MG/ML VIAL ONE (11:13)
[2022-08-13] MEDS ORDERED: PHENYLEPHRINE-NS 100 MCG/ML 10 ML SYRINGE ONE (11:13)
[2022-08-13] MEDS ORDERED: Ondansetron HCl/PF 4 MG/2 ML Vial IVP PRN (12:57)
[2022-08-13] MEDS ORDERED: Promethazine HCl 25 MG/ML VIAL IM PRN (12:57)
[2022-08-13] MEDS ORDERED: Promethazine HCl 25 MG/ML VIAL IVPB PRN (12:57)
[2022-08-13] MEDS: Nicotine 21 MG PATCH TD SCH (14:21)
[2022-08-13] MEDS: Terazosin HCl 5 MG CAP PO SCH (20:25)
[2022-08-14] MEDS: Sodium Chloride 0.9% 1,000 ML IV SCH ×2 (03:55→16:02)
[2022-08-14 07:05] LABS: #Lymphocytes 1.3 thou/uL (1.20-3.40); #Monocytes 1.3 thou/uL (0.11-0.59); #Neutrophils 9.9 thou/uL (1.40-6.50); %Basophils 0.1 % (0.0-1.0); %Eosinophils 0.1 % (0.0-10.0); %Lymphocytes 10.3 % (21.0-51.0); %Neutrophils 79.5 % (42.0-75.0); Hemoglobin 9.4 g/dL (14.0-18.0); Mean Corpuscular Hemoglobin 31.2 pg (27.0-31.0); Mean Corpuscular Volume 97.6 fl (78.0-98.0); Mean Platelet Volume 8.5 fL (7.4-10.4); Platelet Count 160 10x3/uL (130-400); RBC Distribution Width 12.7 % (11.5-14.5); Red Blood Cell (RBC) Count 3.02 mill/uL (4.70-6.10); White Blood Cell (WBC) Count 12.4 10x3/uL (4.8-10.8)
[2022-08-14 07:24] LABS: ALT (SGPT) 38 U/L (8-55); AST (SGOT) 58 U/L (5-34); Albumin 3.6 g/dL (3.4-4.8); Alkaline Phosphatase 80 U/L (40-110); Anion Gap 12 mmol/L (10-20); BUN (Urea Nitrogen) 17 mg/dL (8.4-25.7); Bilirubin, Total 0.7 mg/dL (0.2-1.2); Calc. Creatinine Clearance 67 mL/min (70-130); Calcium 8.8 mg/dL (7.8-10.44); Carbon Dioxide 20 mmol/L (23-31); Chloride 102 mmol/L (98-107); Estimated GFR 80; Globulin 2.7 g/dL (2.4-3.5); Glucose 94 mg/dL (83-110); Potassium 3.6 mmol/L (3.5-5.1); Protein, Total 6.3 g/dL (5.8-8.1); Sodium 130 mmol/L (136-145)
[2022-08-14] MEDS: Levothyroxine Sodium 75 MCG TAB PO SCH (09:05)
[2022-08-14] MEDS: Aspirin 81 mg Enteric Coated Tablet PO SCH (09:05)
[2022-08-14] MEDS: Lisinopril 20 MG TAB PO SCH (09:06)
[2022-08-14] MEDS: Pantoprazole 40 MG VIAL IVP SCH (09:06)
[2022-08-14] MEDS ORDERED: Cyclobenzaprine 10 MG TAB PO PRN (09:10)
[2022-08-14] MEDS ORDERED: Lidocaine 5% Patch TD SCH (09:15)
[2022-08-14] MEDS ORDERED: Cyclobenzaprine 10 MG TAB PO SCH (09:15)
[2022-08-14] MEDS: Nicotine 21 MG PATCH TD SCH (16:00)
[2022-08-14] MEDS ORDERED: FLU VACC QS2022-23(65YR UP)/PF 240 MCG/0.7 ML SYRINGE IM ONE (16:15)
[2022-08-14 17:53] VITALS: BP 128/76; TEMP 97.8
[2022-08-14] MEDS ORDERED: Transdermal Patch Removal TOP SCH (21:00)
[2022-08-15] MEDS ORDERED: Lidocaine 5% Patch TD SCH (09:00)
== END 2022-08-14 17:35 | disposition home or self-care (01) | DRG 419 ==
LOC: ERS 10:13 → T4-A 15:22 → OBSVTOIN 08-12 15:31
PROVIDERS: ADMIT Hospitalist; ATTEND Family Medicine
PROC: 0FT44ZZ Resection of Gallbladder, Percutaneous Endoscopic Approach (ICD-10-PCS; principal; 2022-08-12)
PROC: BF141ZZ Fluoroscopy of Gallbladder, Bile Ducts and Pancreatic Ducts using Low Osmolar Contrast (ICD-10-PCS; 2022-08-12)
PROC: 0F798ZZ Dilation of Common Bile Duct, Via Natural or Artificial Opening Endoscopic (ICD-10-PCS; 2022-08-13)
DX: K80.62 Calculus of gallbladder and bile duct with acute cholecystitis without obstruction (principal); Z20.822 Contact with and (suspected) exposure to COVID-19; I25.10 Atherosclerotic heart disease of native coronary artery without angina pectoris; E03.9 Hypothyroidism, unspecified; F17.210 Nicotine dependence, cigarettes, uncomplicated; E78.5 Hyperlipidemia, unspecified; I10 Essential (primary) hypertension; Z95.1 Presence of aortocoronary bypass graft; Z95.0 Presence of cardiac pacemaker; Z79.82 Long term (current) use of aspirin; Z79.890 Hormone replacement therapy; Z79.899 Other long term (current) drug therapy; Z82.49 Family history of ischemic heart disease and other diseases of the circulatory system
CPT/HCPCS: 36415; 36416; 47532; 71045; 71275; 74174; 74330; 76705; 80048; 80053; 81003; 81015; 82550; 83690; 83880; 84439; 84443; 84481; 84484; 85025; 85610; 88304; 93005; 94760; 96374; 96375; C1725; C1889; C9113; G0378; J1100; J1610; J1650; J1885; J1956; J2250; J2270; J2405; J2704; J3010; J3490; J7050; Q9967; U0003; U0005

== ENCOUNTER 2024-02-27 16:23 | Inpatient (IN) | payer MEDICARE, OTHER ==
[2024-02-27 17:48] LABS: Hematocrit 35.7 % (42.0-52.0); Hemoglobin 12.1 g/dL (14.0-18.0); Mean Corpuscular HGB CONC 33.9 g/dL (32.0-36.0); Mean Corpuscular Hemoglobin 30.2 pg (27.0-31.0); Mean Platelet Volume 11.4 fL (7.4-10.4); Platelet Count 306 10x3/uL (130-400); RBC Distribution Width 13.5 % (11.5-14.5); Red Blood Cell (RBC) Count 4.01 mill/uL (4.70-6.10)
[2024-02-27 17:54] LABS: Bacteria/HPF None Seen HPF (None Seen); Bilirubin Negative (Negative); Blood, Urine Trace (Negative); CAUTI Indications for Culture Alt mental st,lethar; Clarity Clear (Clear); Glucose, Urine (Dipstick) Normal (Negative); Ketone, Urine Negative (Negative); Leukocyte Negative Leu/uL (Negative); Nitrite Negative (Negative); Protein, Urine (Dipstick) 10 mg/dL (Neg-Trace); Specific Gravity, Urine 1.013 (1.002-1.036); Squamous Epithelial 0-3 HPF (0-3); Urobilinogen Normal mg/dL (Less than 2); WBC/HPF 0-3 HPF (0-3); pH, Urine 6.5 (5.0-9.0)
[2024-02-27 17:56] LABS: Urine Culture Reflex No No
[2024-02-27 17:57] LABS: Troponin I Less than 0.010 ng/mL (< 0.028)
[2024-02-27 17:59] LABS: Anisocytosis SLIGHT = 6-15 cells HPF (0-5); Band 3 % (5-11); Burr Cells SLIGHT = 2-5 cells HPF (0-1); Lymphocytes 7 % (21-51); Metamyelocyte 4 % (0-0); Microcytosis SLIGHT = 6-15 cells HPF (0-5); Monocytes 1 % (0-10); Myelocyte 1 % (0-0); Neutrophil 84 % (42-75); Ovalocytes SLIGHT = 2-5 cells HPF (0-1); Platelet Adequacy Comment Platelets Normal; Poikilocytosis SLIGHT = 6-15 cells HPF (0-5); Polychromasia SLIGHT = 2-3 cells HPF (0-2)
[2024-02-27 18:08] LABS: Alcohol Less than 10.0 mg/dL (Less than 10)
[2024-02-27 18:11] LABS: ALT (SGPT) 17 U/L (8-55); AST (SGOT) 22 U/L (5-34); Albumin 3.6 g/dL (3.4-4.8); Alkaline Phosphatase 121 U/L (40-110); Anion Gap 13 mmol/L (10-20); BUN (Urea Nitrogen) 20 mg/dL (8.4-25.7); Bilirubin, Total 0.4 mg/dL (0.2-1.2); Calc. Creatinine Clearance 0 mL/min (70-130); Calcium 9.1 mg/dL (7.8-10.44); Carbon Dioxide 23 mmol/L (23-31); Chloride 108 mmol/L (98-107); Estimated GFR 71; Globulin 3.2 g/dL (2.4-3.5); Glucose 110 mg/dL (83-110); Potassium 3.6 mmol/L (3.5-5.1); Protein, Total 6.8 g/dL (5.8-8.1); Sodium 140 mmol/L (136-145)
[2024-02-27] MEDS ORDERED: traMADol HCl 50 MG TAB PO PRN (19:38)
[2024-02-27] MEDS ORDERED: Ondansetron ODT 4 MG TAB PO PRN (19:38)
[2024-02-27] MEDS ORDERED: Ondansetron PF 4 MG/2 ML Vial IVP PRN (19:38)
[2024-02-27] MEDS ORDERED: Sodium Chloride 0.9% 500 ML IV SCH (20:15)
[2024-02-27 22:18] VITALS: BMI 24.7
[2024-02-27] MEDS: Acetaminophen 325 MG TAB PO SCH (22:27)
[2024-02-27] MEDS: Atorvastatin Calcium 20 MG TAB PO SCH (22:27)
[2024-02-27] MEDS: Sodium Chloride 0.9% 1,000 ML IV SCH (22:31)
[2024-02-27] MEDS: hydrALAZINE 20 MG/ML VIAL SLOW IVP PRN (22:31)
[2024-02-28] MEDS: Mineral Oil ENEMA PR SCH (00:37)
[2024-02-28 05:17] LABS: Hematocrit 29.6 % (42.0-52.0); Hemoglobin 9.9 g/dL (14.0-18.0); Mean Corpuscular HGB CONC 33.4 g/dL (32.0-36.0); Mean Corpuscular Hemoglobin 29.7 pg (27.0-31.0); Mean Corpuscular Volume 88.9 fL (78.0-98.0); Mean Platelet Volume 11.4 fL (7.4-10.4); Platelet Count 260 10x3/uL (130-400); RBC Distribution Width 13.5 % (11.5-14.5); Red Blood Cell (RBC) Count 3.33 mill/uL (4.70-6.10)
[2024-02-28 05:49] LABS: ALT (SGPT) 15 U/L (8-55); AST (SGOT) 18 U/L (5-34); Albumin 3.1 g/dL (3.4-4.8); Alkaline Phosphatase 100 U/L (40-110); Anion Gap 10 mmol/L (10-20); BUN (Urea Nitrogen) 18 mg/dL (8.4-25.7); Bilirubin, Total 0.3 mg/dL (0.2-1.2); Calc. Creatinine Clearance 68 mL/min (70-130); Calcium 8.5 mg/dL (7.8-10.44); Carbon Dioxide 22 mmol/L (23-31); Chloride 108 mmol/L (98-107); Estimated GFR 87; Globulin 2.6 g/dL (2.4-3.5); Glucose 98 mg/dL (83-110); Potassium 3.6 mmol/L (3.5-5.1); Protein, Total 5.7 g/dL (5.8-8.1); Sodium 136 mmol/L (136-145)
[2024-02-28 05:51] LABS: Anisocytosis SLIGHT = 6-15 cells HPF (0-5); Band 2 % (5-11); Hypochromia SLIGHT = 6-15 cells HPF (0-5); Lymphocytes 23 % (21-51); Monocytes 8 % (0-10); Neutrophil 67 % (42-75); Platelet Adequacy Comment Platelets Normal
[2024-02-28] MEDS: Levothyroxine Sodium 75 MCG TAB PO SCH (06:02)
[2024-02-28] MEDS: Nicotine 21 MG PATCH TD SCH (08:34)
[2024-02-28] MEDS: Polyethylene Glycol 3350 17 GM Packet PO SCH (08:34)
[2024-02-28] MEDS: Lisinopril 20 MG TAB PO SCH (08:35)
[2024-02-28] MEDS: Aspirin 81 mg Enteric Coated Tablet PO SCH (08:35)
[2024-02-28] MEDS: Senokot S 8.6-50 MG TAB PO SCH (08:35)
[2024-02-28] MEDS: Enoxaparin 40 MG (0.4 mL) SYRINGE SC SCH (08:36)
[2024-02-28] MEDS: Atorvastatin Calcium 40 MG TAB PO SCH (20:53)
[2024-02-28] MEDS: Terazosin HCl 5 MG CAP PO SCH (20:54)
[2024-02-29 05:02] LABS: #Basophils 0.08 10x3/uL (0.0-0.2); %Basophils 0.8 % (0.0-1.0); %Eosinophils 0.6 % (0.0-10.0); %Lymphocytes 31.2 % (21.0-51.0); %Monocytes 14.3 % (0.0-10.0); %Neutrophils 52.8 % (42.0-75.0); Hematocrit 27.6 % (42.0-52.0); Hemoglobin 9.3 g/dL (14.0-18.0); Mean Corpuscular HGB CONC 33.7 g/dL (32.0-36.0); Mean Platelet Volume 11.5 fL (7.4-10.4); Platelet Count 252 10x3/uL (130-400)
[2024-02-29 05:16] LABS: Anion Gap 11 mmol/L (10-20); BUN (Urea Nitrogen) 10 mg/dL (8.4-25.7); Calc. Creatinine Clearance 70 mL/min (70-130); Calcium 8.7 mg/dL (7.8-10.44); Carbon Dioxide 25 mmol/L (23-31); Chloride 108 mmol/L (98-107); Estimated GFR 88; Glucose 97 mg/dL (83-110); Potassium 4.1 mmol/L (3.5-5.1); Sodium 140 mmol/L (136-145)
[2024-02-29 08:21] VITALS: TEMP 97.1
[2024-02-29] MEDS: Citalopram 20 MG TAB PO SCH (08:24)
[2024-02-29 12:25] VITALS: BP 172/82
== END 2024-02-29 13:08 | disposition home or self-care (01) | DRG 312 ==
LOC: ERS 16:23 → 2SW 19:40 → OBSVTOIN 02-29 09:05
PROVIDERS: ADMIT Internal Medicine; ATTEND Internal Medicine
DX: R55 Syncope and collapse (principal); G93.41 Metabolic encephalopathy; I10 Essential (primary) hypertension; E78.5 Hyperlipidemia, unspecified; E03.9 Hypothyroidism, unspecified; I25.10 Atherosclerotic heart disease of native coronary artery without angina pectoris; K63.89 Other specified diseases of intestine; F17.210 Nicotine dependence, cigarettes, uncomplicated; K59.00 Constipation, unspecified; F41.9 Anxiety disorder, unspecified; Z79.899 Other long term (current) drug therapy; Z79.82 Long term (current) use of aspirin; Z95.1 Presence of aortocoronary bypass graft; Z71.6 Tobacco abuse counseling
CPT/HCPCS: 36415; 36416; 70450; 71045; 74176; 80048; 80053; 80307; 81001; 84145; 84146; 84484; 85025; 87040; 93005; 93306; 96361; 96372; 96374; 96376; G0378; J0360; J1650; J7050

== ENCOUNTER 2024-08-26 06:05 | Emergency (ER) | payer MEDICARE, OTHER ==
[2024-08-26 07:06] LABS: #Basophils 0.05 10x3/uL (0.0-0.2); #Eosinophils Less than 0.03 10x3/uL (0.0-0.7); %Basophils 0.5 % (0.0-1.0); %Eosinophils 0.1 % (0.0-10.0); %Lymphocytes 14.9 % (21.0-51.0); %Monocytes 10.7 % (0.0-10.0); %Neutrophils 73.2 % (42.0-75.0); Hematocrit 31.8 % (42.0-52.0); Hemoglobin 10.9 g/dL (14.0-18.0); Mean Corpuscular HGB CONC 34.3 g/dL (32.0-36.0); Mean Corpuscular Volume 90.3 fL (78.0-98.0); Mean Platelet Volume 9.9 fL (7.4-10.4); Platelet Count 235 10x3/uL (130-400); RBC Distribution Width 14.5 % (11.5-14.5); Red Blood Cell (RBC) Count 3.52 mill/uL (4.70-6.10)
[2024-08-26 07:20] LABS: Bilirubin Negative (Negative); Blood, Urine Small (Negative); Glucose, Urine (Dipstick) Negative (Negative); Ketone, Urine Negative (Negative); Leukocyte Negative (Negative); Nitrite Negative (Negative); Protein, Urine (Dipstick) Trace mg/dL (Neg-Trace); Specific Gravity, Urine 1.025 (1.005-1.030); Urobilinogen 0.2 mg/dL (Less than 2)
[2024-08-26 07:30] LABS: Clarity Clear (Clear)
[2024-08-26 07:31] LABS: ALT (SGPT) 29 U/L (8-55); AST (SGOT) 34 U/L (5-34); Albumin 3.9 g/dL (3.4-4.8); Alkaline Phosphatase 107 U/L (40-110); Anion Gap 11 mmol/L (10-20); BUN (Urea Nitrogen) 18 mg/dL (8.4-25.7); Bilirubin, Total 0.5 mg/dL (0.2-1.2); Calc. Creatinine Clearance 0 mL/min (70-130); Carbon Dioxide 26 mmol/L (23-31); Chloride 98 mmol/L (98-107); Estimated GFR 81; Globulin 3.4 g/dL (2.4-3.5); Glucose 133 mg/dL (83-110); Lipase 19 U/L (8-78); Potassium 3.6 mmol/L (3.5-5.1); Protein, Total 7.3 g/dL (5.8-8.1); Sodium 131 mmol/L (136-145)
[2024-08-26 07:32] LABS: Bacteria/HPF None Seen HPF (None Seen); CAUTI Indications for Culture Dysuria,urgency,freq; RBC/HPF 0-3 HPF (0-3); Squamous Epithelial None Seen HPF (0-3); WBC/HPF None Seen HPF (0-3)
[2024-08-26 07:33] LABS: Urine Culture Reflex No No
[2024-08-26 07:47] LABS: Troponin I 0.012 ng/mL (< 0.028)
== END 2024-08-26 08:45 | disposition home or self-care (01) ==
LOC: ERS 06:05
DX: J18.9 Pneumonia, unspecified organism (principal); E87.1 Hypo-osmolality and hyponatremia; R11.0 Nausea; I10 Essential (primary) hypertension; F17.210 Nicotine dependence, cigarettes, uncomplicated
CPT/HCPCS: 36415; 71045; 80053; 81001; 83690; 83735; 83880; 84484; 85025; 87428

== ENCOUNTER 2025-04-09 14:26 | Emergency (ER) | payer MEDICARE, OTHER ==
[~2025-04-09 14:26] MED LIST: Iopamidol-370 76% 500 ML MDV (1 ML CHARGE) ONE
[2025-04-09 15:46] LABS: #Basophils 0.07 10x3/uL (0.0-0.2); #Eosinophils Less than 0.03 10x3/uL (0.0-0.7); #Monocytes 1.13 10x3/uL (0.11-0.59); #Neutrophils 4.82 10x3/uL (1.40-6.50); %Basophils 0.8 % (0.0-1.0); %Eosinophils 0.2 % (0.0-10.0); %Lymphocytes 27.3 % (21.0-51.0); %Monocytes 13.5 % (0.0-10.0); %Neutrophils 58.0 % (42.0-75.0); Hematocrit 32.7 % (42.0-52.0); Hemoglobin 10.9 g/dL (14.0-18.0); Mean Corpuscular Hemoglobin 29.7 pg (27.0-31.0); Mean Corpuscular Volume 89.1 fL (78.0-98.0); Platelet Count 176 10x3/uL (130-400); Red Blood Cell (RBC) Count 3.67 mill/uL (4.70-6.10); White Blood Cell (WBC) Count 8.34 10x3/uL (4.8-10.8)
[2025-04-09 16:07] LABS: ALT (SGPT) 19 U/L (Less than 45); AST (SGOT) 32 U/L (11-34); Albumin 3.5 g/dL (3.1-4.5); Alkaline Phosphatase 109 U/L (40-110); Anion Gap 11 mmol/L (10-20); BUN (Urea Nitrogen) 27 mg/dL (8.4-25.7); Bilirubin, Total 0.3 mg/dL (0.3-1.2); Calc. Creatinine Clearance 0 mL/min (70-130); Calcium 8.8 mg/dL (7.8-10.44); Carbon Dioxide 25 mmol/L (23-31); Chloride 106 mmol/L (98-107); Globulin 3.0 g/dL (2.4-3.5); Glucose 80 mg/dL (83-110); Potassium 3.7 mmol/L (3.5-5.1); Sodium 138 mmol/L (136-145)
[2025-04-09 16:55] LABS: Bacteria/HPF None Seen HPF (None Seen); CAUTI Indications for Culture Dysuria,urgency,freq; Glucose, Urine (Dipstick) Normal (Negative); Leukocyte Negative Leu/uL (Negative); Protein, Urine (Dipstick) Negative (Neg-Trace); Specific Gravity, Urine 1.035 (1.002-1.036); WBC/HPF 0-3 HPF (0-3)
[2025-04-09 16:59] LABS: Urine Culture Reflex No No
== END 2025-04-09 19:14 | disposition home or self-care (01) ==
LOC: ERS 14:26
DX: R42 Dizziness and giddiness (principal); R29.700 NIHSS score 0; I25.10 Atherosclerotic heart disease of native coronary artery without angina pectoris; E03.9 Hypothyroidism, unspecified; I10 Essential (primary) hypertension; F17.210 Nicotine dependence, cigarettes, uncomplicated; Z79.82 Long term (current) use of aspirin; Z79.890 Hormone replacement therapy; Z79.899 Other long term (current) drug therapy
CPT/HCPCS: 36415; 70496; 70498; 71045; 80053; 81001; 83605; 83880; 84484; 85025; 93005; 94760; 96360; Q9967

== ENCOUNTER 2025-06-07 15:29 | Emergency (ER) | payer MEDICARE, OTHER ==
[2025-06-07 15:55] LABS: #Basophils 0.07 10x3/uL (0.0-0.2); #Eosinophils Less than 0.03 10x3/uL (0.0-0.7); #Monocytes 1.11 10x3/uL (0.11-0.59); #Neutrophils 3.88 10x3/uL (1.40-6.50); %Basophils 0.8 % (0.0-1.0); %Eosinophils 0.2 % (0.0-10.0); %Lymphocytes 40.0 % (21.0-51.0); %Monocytes 13.0 % (0.0-10.0); %Neutrophils 45.6 % (42.0-75.0); Hematocrit 29.3 % (42.0-52.0); Hemoglobin 9.6 g/dL (14.0-18.0); Mean Corpuscular Hemoglobin 30.5 pg (27.0-31.0); Mean Corpuscular Volume 93.0 fL (78.0-98.0); Platelet Count 252 10x3/uL (130-400); Red Blood Cell (RBC) Count 3.15 mill/uL (4.70-6.10); White Blood Cell (WBC) Count 8.52 10x3/uL (4.8-10.8)
[2025-06-07 16:17] LABS: ALT (SGPT) 68 U/L (Less than 45); AST (SGOT) 80 U/L (11-34); Albumin 3.5 g/dL (3.1-4.5); Alkaline Phosphatase 143 U/L (40-110); Anion Gap 13 mmol/L (10-20); BUN (Urea Nitrogen) 17 mg/dL (8.4-25.7); Bilirubin, Total 0.3 mg/dL (0.3-1.2); Calc. Creatinine Clearance 0 mL/min (70-130); Calcium 8.8 mg/dL (7.8-10.44); Carbon Dioxide 29 mmol/L (23-31); Chloride 101 mmol/L (98-107); Globulin 3.1 g/dL (2.4-3.5); Glucose 115 mg/dL (83-110); Potassium 3.7 mmol/L (3.5-5.1); Sodium 139 mmol/L (136-145)
[2025-06-07 19:25] LABS: Free T4 (Free Thyroxine) 0.48 ng/dL (0.70-1.48)
== END 2025-06-07 19:52 | disposition home or self-care (01) ==
LOC: ERS 15:29
DX: R07.9 Chest pain, unspecified (principal); E03.9 Hypothyroidism, unspecified; I25.10 Atherosclerotic heart disease of native coronary artery without angina pectoris; E78.5 Hyperlipidemia, unspecified; I10 Essential (primary) hypertension; F17.210 Nicotine dependence, cigarettes, uncomplicated; Z95.0 Presence of cardiac pacemaker; Z79.82 Long term (current) use of aspirin; Z79.890 Hormone replacement therapy; Z79.899 Other long term (current) drug therapy
CPT/HCPCS: 70450; 71045; 80053; 83690; 83880; 84439; 84443; 84481; 84484; 85025; 85379; 93005; 94760